=== PATIENT | male | born 1990 | race African-American/Black ===

== ENCOUNTER → 2018-10-22 | Emergency (ER) | payer OTHER ==
[~2018-10-22] VITALS: Ht 182.9 cm; Wt 83.9 kg
[~2018-10-22] MED LIST: HYDROCODONE/APAP 10/325MG 1 EA TABLET ONE; HYDROCODONE/APAP 10/325MG 1 EA TABLET PO ONE; ONDANSETRON 4 MG TAB.RAPDIS ONE
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
--- NOTE | 2018-10-22 16:00 | NUR ---
DR. HALEY AT BEDSIDE FOR EVAL.
[2018-10-22] MEDS: ONDANSETRON 4 MG TAB.RAPDIS SL ONE ×2 (16:32→16:35)
--- NOTE | 2018-10-22 17:38 | NUR ---
Patient discharged to home in stable condition. Written and verbal after care instructions given. Patient verbalizes understanding of instruction.
[2018-10-22 17:44] VITALS: BP 119/71
== END | disposition home or self-care (01) ==
LOC: ER 15:56
DX: S89.82XA Other specified injuries of left lower leg, initial encounter (principal); V29.88XA Motorcycle rider (driver) (passenger) injured in other specified transport accidents, initial encounter; Y93.89 Activity, other specified; Y92.89 Other specified places as the place of occurrence of the external cause; Y99.8 Other external cause status
CPT/HCPCS: 73564; 99283; A4606; J7030; Z7610; Q0162

== ENCOUNTER 2022-01-13 17:41 | Emergency (ER) | payer OTHER ==
[~2022-01-13] VITALS: Ht 180.3 cm; Wt 86.2 kg
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
[2022-01-13] MEDS ORDERED: IBUPROFEN 400 MG TABLET ONE (18:26)
--- NOTE | 2022-01-13 18:29 | NUR ---
MEDICATED THE PATIENT PER ORDER.
[2022-01-13] MEDS ORDERED: IBUPROFEN 400 MG TABLET PO ONE (18:30)
--- NOTE | 2022-01-13 18:56 | NUR ---
PT IS BACK FROM RADIOLOGY.
[2022-01-13] MEDS ORDERED: KETOROLAC TROMETHAMINE INJ 30 MG/ML VIAL ONE (19:19)
[2022-01-13] MEDS ORDERED: KETOROLAC TROMETHAMINE INJ 30 MG/ML VIAL IM ONE (19:30)
--- NOTE | 2022-01-13 19:39 | NUR ---
Patient discharged to home in stable condition. Written and verbal after care instructions given. Patient verbalizes understanding of instruction.
[2022-01-13 19:40] VITALS: BP 137/63
== END 2022-01-13 19:41 | disposition home or self-care (01) ==
LOC: ER 17:42
DX: M54.50 Low back pain, unspecified (principal); M79.605 Pain in left leg; Z60.2 Problems related to living alone
CPT/HCPCS: 72110; 96372; 99283; J1885